=== PATIENT | male | born 1995 | race Two or more races ===

== ENCOUNTER 2019-05-27 05:37 | Emergency (ER) | payer OTHER ==
--- NOTE | 2019-05-27 06:38 | EDM.PDOC ---
ED HPI GENERAL MEDICAL PROBLEM - General Chief Complaint: Chest Pain Stated Complaint: PAIN LT SIDE OF CHEST Time Seen by Provider: 05/27/19 05:50 Source of Information: Reports: Patient History Limitations: Reports: No Limitations - History of Present Illness INITIAL COMMENTS - FREE TEXT/NARRATIVE: patient presents today with chest pain in his left upper skin sternal area radiating into his left neck and back which started yesterday about 3:00p. He reports he was on the tractor baling at the time. it seems to have worsened since that time, and he feels extremely short of breath with it. Also slightly dizzy, like he would pass out. He has never had pain like this before. He has had decreased appetite over the last 3 days, but no nausea, no change in stools , no other symptoms. No changes in pain when he exerts, and no previous history of chest pain, no SOB, no difficulty with exertion. In [facility] walks a lot but less so here, has never been syncopal or passed out. Does not feel sweaty, and has not had a fever or otherwise felt unwell. No changes in vision. No falls, no change in exertion. No rashes or skin lesions. he has no history of any medical problems, and there is nothing that runs in the family or history of early/unexpected before age of 49. He does not smoke, drinks occasional social alcohol, no drug use. from [place] [facility], been in 4 months. Hasn't slept well last couple nights and has worked last 3 weekends straight. Reports under a lot of stress. chest Pain Score (Numeric/FACES): 7 - Related Data Allergies Allergy/AdvReac Type Severity Reaction Status Date / Time No Known Allergies Allergy Verified 05/27/19 06:06 Home Meds: Home Meds Multivitamin [Multivitamins] 1 each PO DAILY 05/27/19 [History] Past Medical History - Past Health History Medical/Surgical History: Denies Medical/Surgical History Social & Family History - Family History Family Medical History: Noncontributory Other Family History: grandfather had something with his heart arteries as he got older, maybe CAD? 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 Denies: Fever, Chills, Malaise HEENT: Reports: No Symptoms Respiratory: Reports: Shortness of Breath. Denies: Wheezing, Pleuritic Chest Pain, Cough Cardiovascular: Denies: Edema Endocrine: Reports: No Symptoms GI/Abdominal: Reports: Decreased Appetite. Denies: Constipation, Diarrhea, Nausea, Vomiting : Reports: No Symptoms Musculoskeletal: Reports: No Symptoms Skin: Reports: No Symptoms Neurological: Denies: Headache, Numbness, Syncope, Tingling, Weakness Psychiatric: Reports: Anxiety Hematologic/Lymphatic: Reports: No Symptoms Immunologic: Reports: No Symptoms ED EXAM, GENERAL - Physical Exam Exam: See Below Free Text/Narrative:: general: Alert, anxious affect. head is atraumatic, neck is supple. pupils are equal and reactive and facial muscles are symmetric. Throat without erythema mucous membranes are moist and not pale. No cervical lymphadenopathy. Heart is regular rate and rhythm and I do not hear murmur or rub. Lungs are clear throughout with decreased inspiration, no wheezes or crackles. Abdomen positive bowel sounds, soft nondistended nontender. Peripheral pulses +2 and strong in both upper and lower extremities. There is no lower extremity edema. His gait is normal and he has equal strength side to side. pain is reproducible with palpation of left upper chest - pectoralis muscle. There are no skin lesions or rashes EKG INTERPRETATION Rhythm: NSR P-Wave: Present QRS: Normal ST-T: Normal Comparison: NA - No Prior EKG Course - Vital Signs Text/Narrative:: initial EKG normal, initial impression is likely MSK, low probability PE, given radiation pattern of pain other concern would be aortic dissection. labs ordered, CXR. Last Recorded V/S: Last Vital Signs Temp 36.6 C 05/27/19 09:00 Pulse 81 05/27/19 09:00 Resp 18 05/27/19 09:00 BP 128/85 05/27/19 09:00 Pulse Ox 99 05/27/19 09:00 - Orders/Labs/Meds Labs: Laboratory Tests 05/27/19 05/27/19 05/27/19 Range/Units 06:30 06:30 06:30 WBC 8.6 (4.5-12.0) X10-3/uL RBC 5.05 (4.30-5.75) x10(6)uL Hgb 15.2 (13.5-17.8) g/dL Hct 44.6 (30.0-51.3) % MCV 88.3 (80-96) fL MCH 30.2 (27.7-33.6) pg MCHC 34.2 (32.2-35.4) g/dL RDW 12.0 (11.5-15.5) % Plt Count 180 (125-369) X10(3)uL MPV 8.3 (7.4-10.4) fL Add Manual Diff Yes Neutrophils % (Manual) 68 (46-82) % Band Neutrophils % 1 (0-6) % Lymphocytes % (Manual) 22 (13-37) % Monocytes % (Manual) 5 (4-12) % Eosinophils % (Manual) 4 (0-5) % D-Dimer, Quantitative (0.0-0.59) mg/LFEU Sodium 140 (135-145) mmol/L Potassium 4.1 (3.5-5.3) mmol/L Chloride 107 (100-110) mmol/L Carbon Dioxide 28 (21-32) mmol/L BUN 13 (7-18) mg/dL Creatinine 1.0 (0.70-1.30) mg/dL Est Cr Clr Drug Dosing 117.61 mL/min Estimated GFR (MDRD) > 60 (>60) BUN/Creatinine Ratio 13.0 (9-20) Glucose 106 (80-116) mg/dL Calcium 9.0 (8.6-10.2) mg/dL Total Bilirubin 0.4 (0.1-1.3) mg/dL AST 14 (5-25) IU/L ALT 31 (12-36) U/L Alkaline Phosphatase 89 (56-112) IU/L Troponin I < 0.017 L (<0.017-0.056) ng/mL Total Protein 7.0 (6.0-8.0) g/dL Albumin 4.0 (3.5-5.2) g/dL Globulin 3.0 g/dL Albumin/Globulin Ratio 1.3 05/27/19 Range/Units 06:30 WBC (4.5-12.0) X10-3/uL RBC (4.30-5.75) x10(6)uL Hgb (13.5-17.8) g/dL Hct (30.0-51.3) % MCV (80-96) fL MCH (27.7-33.6) pg MCHC (32.2-35.4) g/dL RDW (11.5-15.5) % Plt Count (125-369) X10(3)uL MPV (7.4-10.4) fL Add Manual Diff Neutrophils % (Manual) (46-82) % Band Neutrophils % (0-6) % Lymphocytes % (Manual) (13-37) % Monocytes % (Manual) (4-12) % Eosinophils % (Manual) (0-5) % D-Dimer, Quantitative 0.25 (0.0-0.59) mg/LFEU Sodium (135-145) mmol/L Potassium (3.5-5.3) mmol/L Chloride (100-110) mmol/L Carbon Dioxide (21-32) mmol/L BUN (7-18) mg/dL Creatinine (0.70-1.30) mg/dL Est Cr Clr Drug Dosing mL/min Estimated GFR (MDRD) (>60) BUN/Creatinine Ratio (9-20) Glucose (80-116) mg/dL Calcium (8.6-10.2) mg/dL Total Bilirubin (0.1-1.3) mg/dL AST (5-25) IU/L ALT (12-36) U/L Alkaline Phosphatase (56-112) IU/L Troponin I (<0.017-0.056) ng/mL Total Protein (6.0-8.0) g/dL Albumin (3.5-5.2) g/dL Globulin g/dL Albumin/Globulin Ratio Meds: Medications Discontinued Medications Generic Name Dose Route Start Last Admin Trade Name Freq PRN Reason Stop Dose Admin Hydroxyzine Pamoate 50 mg 05/27/19 06:30 05/27/19 06:40 Vistaril PO 05/27/19 06:31 50 mg ONETIME NEELAM Administration Iopamidol 100 ml 05/27/19 08:01 05/27/19 08:11 Isovue-370 (76%) IV 05/27/19 08:02 95 ml ONETIME ONE Administration Ketorolac Tromethamine 30 mg 05/27/19 07:50 05/27/19 07:54 Toradol IVPUSH 05/27/19 07:51 30 mg ONETIME ONE Administration - Re-Assessments/Exams Free Text/Narrative Re-Assessment/Exam: 05/27/19 labs reviewed, all within normal limits. negative D-dimer. Patient states felt short of breath just walking to cxr, and pain is worsening. He cannot lie down comfortably, feels best sitting slightly reclined. Vistaril didn't change much other than mouth is dry. Can reproduce pain with palpation over anterior chest. lengthy discussion regarding probably etiology and pros/cons of CT angio to r/o dissection. Given his complaint of worsening SOB we decided to proceed. D- dimer negative so unlikely PE. No murmurs or rubs heard. Will also try some toradol. Sat walk test ordered. Free Text/Narrative Re-Assessment/Exam: 05/27/19 08:37 recheck - patient resting comfortably with eyes closed 05/27/19 09:05 pain significantly improved following toradol. Sats 96-100% on pulse ox when walking around. CT angio personally reviewed, I do not see any concerning findings. Radiology report notes low volume of lungs minor atelectasis in bases , no aortic dissection, no pulmonary embolism will discharge to home, off work today, may return to work tomorrow if improved. Outpatient followup an option at this point if no other new symptoms. If worsening or other symptoms return to ER. Departure - Departure Time of Disposition: 09:06 Disposition: Home, Self-Care 01 Condition: Good Clinical Impression: Left-sided chest wall pain Instructions: Chest Wall Pain, [id number] Referrals: PCP,None [Primary Care Provider] - Forms: ED Department Discharge, ED Return to Work/School Form Additional Instructions: can take: ibuprofen 600mg (3 tabs of [id number]) up to 3 times per day, starting 6 hours after leaving ER ok to take your other medication (Norflex) with this drink LOTS of water today and tomorrow especially rest today --note given for work light activity such as a walk may be helpful avoid strenous activities for 2-3 days to help muscles recover for followup - may return to ER - another option during the day is outpatient walk-in clinic (which would likely be less expensive given your insurance situation)
[2019-05-27] MEDS ORDERED: Ketorolac 30 MG/ML SDV IVPUSH ONE (07:50)
[2019-05-27] MEDS ORDERED: Iopamidol 755 Mg/ML 100 ML Bottle IV ONE (08:01)
--- NOTE | 2019-05-27 10:37 | CR ---
INDICATION: Left-sided chest pain, shortness of breath. CHEST: Two PA views and a lateral view of the chest were obtained 05/27/19. Relatively poor inspiration is suggested, which emphasizes the heart. The heart may be at the upper limits of normal in size. Overlying EKG leads are noted. Mediastinum was otherwise unremarkable. An active infiltrate or effusion was not identified. Bony structures appear to be intact. IMPRESSION: 1. Relatively poor inspiration. The heart appears prominent, which could be exacerbated by the poor inspiration. It may be at the upper limits of normal in size. 2. No definite acute process. MTDD
== END 2019-05-27 09:09 | disposition home or self-care (01) ==
LOC: FB.ED 05:37
DX: R07.89 Other chest pain (principal)
CPT/HCPCS: 36415; 71046; 71275; 80053; 84484; 85025; 85379; 93005; 96374; 99285; A9270; J1885; Q9967; 93010

== ENCOUNTER 2019-05-27 13:21 | Emergency (ER) | payer OTHER ==
[2019-05-27] MEDS ORDERED: Aspirin 81 MG Tab.Chew PO ONE ×2 (13:35→18:54)
[2019-05-27] MEDS ORDERED: Morphine 2 MG/ML Syringe IVPUSH ONE ×4 (13:58→19:09)
[2019-05-27] MEDS ORDERED: Morphine 2 MG/ML Syringe ONE (13:59)
[2019-05-27] MEDS ORDERED: Sodium Chloride 0.9% 1,000 ML IV SCH (14:00)
[2019-05-27] MEDS: Sodium Chloride 0.9% 10 ML Syringe FLUSH PRN ×3 (14:00→14:40)
[2019-05-27] MEDS ORDERED: Ondansetron 4 MG/2 ML SDV ONE (14:08)
[2019-05-27] MEDS: Ondansetron 4 MG/2 ML SDV IVPUSH PRN ×2 (14:09→19:38)
[2019-05-27] MEDS ORDERED: Acetaminophen 325 MG Tab PO PRN (14:09)
[2019-05-27] MEDS ORDERED: Nitroglycerin 0.4 MG Tab.SL SL ONE (14:58)
[2019-05-27] MEDS ORDERED: Colchicine 0.6 MG Tab PO ONE (18:55)
--- NOTE | 2019-05-27 19:05 | EDM.PDOC ---
ED HPI GENERAL MEDICAL PROBLEM - General Chief Complaint: Chest Pain Stated Complaint: SOB Time Seen by Provider: 05/27/19 13:30 Source of Information: Reports: Patient History Limitations: Reports: No Limitations - History of Present Illness INITIAL COMMENTS - FREE TEXT/NARRATIVE: patient returns with worsening chest pain following a nap. States that he can' t really find a comfortable position. Now also feels a bit sweaty/flushed. Worsening shortness of breath. took ibuprofen 800mg at noon Evaluated earlier this morning - please see previous ER note. Workup included labs, EKG, CT-Angiogram. left chest painradiating to the left shoulder and back Pain Score (Numeric/FACES): 6 - Related Data Allergies Allergy/AdvReac Type Severity Reaction Status Date / Time No Known Allergies Allergy Verified 05/27/19 06:06 Home Meds: Home Meds Multivitamin [Multivitamins] 1 each PO DAILY 05/27/19 [History] Past Medical History - Past Health History Medical/Surgical History: Denies Medical/Surgical History Psychiatric History: Reports: Anxiety Social & Family History - Family History Family Medical History: Noncontributory - Tobacco Use Smoking Status *Q: Never Smoker - Caffeine Use Caffeine Use: Reports: None - Recreational Drug Use Recreational Drug Use: No - Living Situation & Occupation Occupation: Employed 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 ED EXAM, GENERAL - Physical Exam Exam: See Below Free Text/Narrative:: general: Alert, extremely uncomfortable appearing. Pupils are equal and reactive , head is atraumatic and facial muscles are symmetric. throat is without erythema, mucus membranes moist and there are no tonsillar enlargement or exudates. Neck is supple and no lymphadenopathy. Heart is regular, I hear no murmur or rub, even with patient leaning forward. Lungs are clear and decreased breath sounds, poor inspiration. Abdomen soft, nontender. No rashes or lesions. Peripheral pulses +2 and equal. No lower extremity edema. No abnormal skin lesions or rashes. Strength equal bilaterally, gait normal. EKG INTERPRETATION Rhythm: NSR [place]: Normal P-Wave: Present QRS: Normal ST-T: Elevated (diffusely, concave) QT: Normal Course - Vital Signs Text/Narrative:: called and discussed earlier CT with local radiologist regarding other possible causes of chest pain. Possible heart borderline enlarged. Some significant atelectasis in bases, remote possibility of pneumonia. will repeat troponin, add CRP and lactic acid. d-dimer was negative so PE highly unlikely even with suboptimal contrast. Repeat EKG reviewed, now with diffuse ST elevation compared to prior. Suspect viral pericarditis. Pain responded to 2mg morphine, will give bumps as needed while awaiting results. Hemodynamically stable. Last Recorded V/S: Last Vital Signs Temp 36.6 C 05/27/19 19:24 Pulse 89 05/27/19 19:24 Resp 18 05/27/19 19:24 BP 140/83 05/27/19 19:24 Pulse Ox 100 05/27/19 19:24 - Orders/Labs/Meds Orders: Active Orders 24 hr Category Date Time Status EKG Documentation Completion [RC] ASDIRECTED Care 05/27/19 14:00 Active EKG 12 Lead [EK] Routine Ther 05/27/19 14:00 Ordered Labs: Laboratory Tests 05/27/19 05/27/19 Range/Units 14:05 14:05 Lactic Acid 1.1 (0.4-2.2) mmol/L Troponin I < 0.017 L (<0.017-0.056) ng/mL C-Reactive Protein 4.1 H* (0.5-0.9) mg/dL Meds: Medications Discontinued Medications Generic Name Dose Route Start Last Admin Trade Name Freq PRN Reason Stop Dose Admin Acetaminophen 650 mg 05/27/19 14:09 05/27/19 14:16 Tylenol PO 650 mg Q4H PRN Administration Pain/Fever Aspirin 324 mg 05/27/19 13:35 05/27/19 13:35 Aspirin PO 05/27/19 13:36 324 mg ONETIME ONE Administration Aspirin 650 mg 05/27/19 18:54 05/27/19 19:07 Aspirin PO 05/27/19 18:55 648 mg ONETIME ONE Administration Colchicine 1.2 mg 05/27/19 18:55 05/27/19 19:01 Colcrys PO 05/27/19 18:56 1.2 mg ONETIME ONE Administration Sodium Chloride 1,000 mls @ 150 mls/hr 05/27/19 14:00 05/27/19 14:00 Normal Saline IV 150 mls/hr ASDIRECTED NEELAM Administration Morphine Sulfate 2 mg 05/27/19 13:58 05/27/19 14:40 Morphine IVPUSH 05/27/19 13:59 2 mg ONETIME ONE Administration Morphine Sulfate 2 mg 05/27/19 13:59 05/27/19 14:01 Morphine IVPUSH 05/27/19 14:00 2 mg ONETIME ONE Administration Morphine Sulfate Confirm 05/27/19 13:59 05/27/19 14:12 Morphine Administered 05/27/19 14:00 Not Given Dose 2 mg .ROUTE .STK-MED ONE Morphine Sulfate 2 mg 05/27/19 18:16 05/27/19 18:23 Morphine IVPUSH 05/27/19 18:17 2 mg ONETIME ONE Administration Morphine Sulfate 2 mg 05/27/19 19:09 05/27/19 19:39 Morphine IVPUSH 05/27/19 19:10 2 mg ONETIME ONE Administration Nitroglycerin 0.4 mg 05/27/19 14:58 05/27/19 13:40 Nitrostat SL 05/27/19 14:59 0.4 mg ONETIME ONE Administration Ondansetron HCl Confirm 05/27/19 14:08 05/27/19 14:13 Zofran Administered 05/27/19 14:09 Not Given Dose 4 mg .ROUTE .STK-MED ONE Ondansetron HCl 4 mg 05/27/19 14:09 05/27/19 19:38 Zofran IVPUSH 4 mg Q4H PRN Administration Nausea/Vomiting Sodium Chloride 10 ml 05/27/19 14:36 05/27/19 14:40 Saline Flush FLUSH 10 ml ASDIRECTED PRN Administration IV Use - Re-Assessments/Exams Free Text/Narrative Re-Assessment/Exam: repeat troponin negative. Elevated CRP, normal lactic acid. discussed case with [facility] regarding transfer for suspected myocarditis/ pericarditis. After review of EKG, they are in agreement. Requested patient to be loaded with colchicine PO and high dose ASA prior to transfer. He remains afebrile, no indications for antibiotics at this time. Has needed morphine a couple additional times this afternoon to maintain pain control. Maintenance fluid started as well. Patient in agreement with plan for admission and cardiology consult, all questions answered. 05/28/19 14:01 Departure - Departure Time of Disposition: 19:04 Disposition: DC/Tfer to Acute Hospital 02 Condition: Fair Clinical Impression: Pericarditis - Discharge Information *PRESCRIPTION DRUG MONITORING PROGRAM REVIEWED*: No *COPY OF PRESCRIPTION DRUG MONITORING REPORT IN PATIENT ABRAHAM: No Referrals: PCP,Unknown [Primary Care Provider] - Forms: ED Department Discharge Additional Instructions: transfer to [facility] - My Orders Last 24 Hours: My Active Orders 05/27/19 14:00 EKG Documentation Completion [RC] ASDIRECTED EKG 12 Lead [EK] Routine - Assessment/Plan Last 24 Hours: My Active Orders 05/27/19 14:00 EKG Documentation Completion [RC] ASDIRECTED EKG 12 Lead [EK] Routine
== END 2019-05-27 20:00 ==
LOC: FB.ED 13:21
DX: I31.9 Disease of pericardium, unspecified (principal)
CPT/HCPCS: 36415; 83605; 84484; 86140; 93005; 96361; 96374; 96375; 96376; 99285; A9270; J2270; J2405; J7030; 93010